=== PATIENT | male | born 1990 | race Caucasian/White ===

== ENCOUNTER 2022-12-10 08:51 | Outpatient (CLI) | payer OTHER, SELFPAY | END 2022-12-10 08:52 | disposition home or self-care (01) | PROVIDERS: Visit Provider Family Medicine | DX: R22.1 Localized swelling, mass and lump, neck (principal); R53.83 Other fatigue; Z13.6 Encounter for screening for cardiovascular disorders | CPT/HCPCS: 80053; 80061 ==

== ENCOUNTER 2022-12-17 14:47 | Outpatient (CLI) | payer OTHER, SELFPAY ==
--- NOTE | 2022-12-17 15:00 | CRLHL7_ITS ---
For Patients: As a result of the Century Cures Act, medical imaging exams and procedure reports are released immediately into your electronic medical record. You may view this report before your referring provider. If you have questions, please contact your health care provider. Indication: LOCALIZED SWELLING, MASS AND LUMP RT NECK Technique: Grayscale and color Doppler ultrasound of neck soft tissues performed. Comparison: None Findings: Right posterior neck lymph node is present measuring 1.3 x 0.5 x 1.0 cm. Normal central fatty hilum noted. Normal internal vascularity. Contralateral left neck also imaged. Several lymph nodes are present on the left, the largest measures 2.6 x 0.6 x 1.5 cm with normal central fatty hilum. Impression: Mildly reactive bilateral cervical lymph nodes. No suspicious findings. If symptoms continue, consider follow-up ultrasound, CT soft tissue neck or ENT referral. Dictated by Get Thornton MD @ 12/18/2022 3:17:38 PM (Electronically Signed)
== END 2022-12-17 14:48 | disposition home or self-care (01) ==
LOC: US 14:48
PROVIDERS: PCP Family Medicine; Visit Provider Family Medicine
DX: R22.1 Localized swelling, mass and lump, neck (principal)
CPT/HCPCS: 76536